=== PATIENT | male | born 1955 | race Caucasian/White ===

== ENCOUNTER → 2017-12-01 | Outpatient (CLI) | payer OTHER ==
[~2017-12-01] MED LIST: ASPI81EC PO
== END | disposition home or self-care (01) ==
LOC: LAB SHORT 10:04 → PLD 10:04
DX: D48.5 Neoplasm of uncertain behavior of skin (principal)
CPT/HCPCS: 88305

== ENCOUNTER 2018-05-06 07:21 | Day surgery (SDC) | payer OTHER ==
[~2018-05-06] VITALS: Ht 172.7 cm; Wt 80.0 kg
[2018-05-06] MEDS ORDERED: NEBI5 PO (07:59)
[2018-05-06] MEDS ORDERED: CYCL10 PO (07:59)
[2018-05-06] MEDS ORDERED: TUMS200 MG PO (07:59)
--- NOTE | 2018-05-06 08:06 | NUR ---
05/06/18 [id number] Selvin Ferguson CALL LIGHT WITHIN REACH. FAMILY AT BEDSIDE.
== END 2018-05-06 09:24 | disposition home or self-care (01) ==
LOC: ORSCSDS 07:21
PROVIDERS: Orthopaedic Surgery
PROC: 01N54ZZ Release Median Nerve, Percutaneous Endoscopic Approach (ICD-10-PCS; principal; 2018-05-06 08:30)
DX: G56.01 Carpal tunnel syndrome, right upper limb (principal); I10 Essential (primary) hypertension; K21.9 Gastro-esophageal reflux disease without esophagitis; E78.5 Hyperlipidemia, unspecified; F17.210 Nicotine dependence, cigarettes, uncomplicated; Z79.899 Other long term (current) drug therapy
CPT/HCPCS: J0690; J2250; J3010; J7120

== ENCOUNTER 2018-05-20 07:33 | Day surgery (SDC) | payer OTHER ==
[~2018-05-20] VITALS: Ht 172.7 cm; Wt 79.7 kg
[~2018-05-20 07:33] MED LIST changes: +CYCL10 PO; +NEBI5 PO; +TUMS200 MG PO
== END 2018-05-20 09:36 | disposition home or self-care (01) ==
LOC: ORSCSDS 07:33
PROVIDERS: Orthopaedic Surgery
PROC: 01N54ZZ Release Median Nerve, Percutaneous Endoscopic Approach (ICD-10-PCS; principal; 2018-05-20 09:00)
DX: G56.02 Carpal tunnel syndrome, left upper limb (principal); I10 Essential (primary) hypertension; K21.9 Gastro-esophageal reflux disease without esophagitis; Z79.899 Other long term (current) drug therapy
CPT/HCPCS: J0690; J2250; J3010; J7120

== ENCOUNTER → 2018-06-01 | Outpatient (CLI) | payer OTHER | END | disposition home or self-care (01) | LOC: PLD 07:52 → LAB SHORT 07:52 | DX: C44.519 Basal cell carcinoma of skin of other part of trunk (principal); D48.5 Neoplasm of uncertain behavior of skin | CPT/HCPCS: 88305 ==

== ENCOUNTER 2019-06-22 15:43 | Emergency (ER) | payer OTHER ==
[~2019-06-22] VITALS: Ht 172.7 cm; Wt 79.4 kg
[~2019-06-22 15:43] MED LIST changes: +MOTRIN IB200 MG PO; +NEBI10 PO; +OMEPRAZOLE20 MG PO; +TUMS500 MG PO
[2019-06-22] MEDS ORDERED: Aspir 8181 MG PO (19:19)
[2019-06-22] MEDS ORDERED: TADA10TA PO (19:19)
[2019-06-22] MEDS ORDERED: NEBI10 PO (19:19)
[2019-06-22] MEDS ORDERED: LIDO700A20 TOP (19:54)
[2019-06-22] MEDS ORDERED: Voltaren100 GM TOP (19:54)
== END 2019-06-22 20:20 | disposition home or self-care (01) ==
LOC: ER 15:43
DX: S23.41XA Sprain of ribs, initial encounter (principal); Z79.899 Other long term (current) drug therapy; Z79.82 Long term (current) use of aspirin; X58.XXXA Exposure to other specified factors, initial encounter
CPT/HCPCS: 71046; 99283-25; A9270-GY

== ENCOUNTER → 2019-12-27 | Outpatient (CLI) | payer OTHER ==
[~2019-12-27] MED LIST changes: +Aspir 8181 MG PO; +LIDO700A20 TOP; +TADA10TA PO; +Voltaren100 GM TOP
== END | disposition home or self-care (01) ==
LOC: PLD 11:41 → LAB SHORT 11:41
DX: C44.612 Basal cell carcinoma of skin of right upper limb, including shoulder (principal); L81.4 Other melanin hyperpigmentation
CPT/HCPCS: 88305

== ENCOUNTER → 2020-06-18 | Outpatient (CLI) | payer OTHER | END | disposition home or self-care (01) | LOC: LAB SHORT 11:02 | DX: L57.0 Actinic keratosis (principal) | CPT/HCPCS: 88305 ==

== ENCOUNTER 2020-07-06 07:41 | Day surgery (SDC) | payer OTHER ==
[~2020-07-06] VITALS: Ht 172.7 cm; Wt 79.3 kg
[~2020-07-06 07:41] MED LIST changes: +ATOR10; +Calcium Carbon500 MG; +OMEP20ER; +TELM40
== END 2020-07-06 10:03 | disposition home or self-care (01) ==
LOC: ORSCSDS 07:41
PROVIDERS: Internal Medicine Gastroenterology
PROC: 0DBM8ZX Excision of Descending Colon, Via Natural or Artificial Opening Endoscopic, Diagnostic (ICD-10-PCS; principal; 2020-07-06 09:00)
PROC: 0DB58ZX Excision of Esophagus, Via Natural or Artificial Opening Endoscopic, Diagnostic (ICD-10-PCS; principal; 2020-07-06 09:00)
DX: K21.9 Gastro-esophageal reflux disease without esophagitis (principal); Z12.11 Encounter for screening for malignant neoplasm of colon; Z86.010 Personal history of colon polyps; K63.5 Polyp of colon; K57.30 Diverticulosis of large intestine without perforation or abscess without bleeding; K64.8 Other hemorrhoids; K44.9 Diaphragmatic hernia without obstruction or gangrene; Z79.82 Long term (current) use of aspirin; I10 Essential (primary) hypertension; Z79.899 Other long term (current) drug therapy; F17.210 Nicotine dependence, cigarettes, uncomplicated
CPT/HCPCS: 88305; J0330; J0461; J2405; J2704; J7120

== ENCOUNTER → 2021-06-24 | Outpatient (CLI) | payer OTHER | END | disposition home or self-care (01) | LOC: PLD 11:09 → LAB SHORT 11:09 | DX: D48.5 Neoplasm of uncertain behavior of skin (principal) | CPT/HCPCS: 88305 ==

== ENCOUNTER → 2022-10-15 | Outpatient (CLI) | payer OTHER | LOC: LAB SHORT 09:55 → LAB 09:55 → PLD 09:55 | DX: L72.8 Other follicular cysts of the skin and subcutaneous tissue (principal) | CPT/HCPCS: 88305 ==